=== PATIENT | female | born 1960 | race Caucasian/White ===

== ENCOUNTER 2016-08-16 15:58 | Emergency (ER) | payer OTHER ==
[2016-08-16 16:55] VITALS: BP 119/86; PULSE 111; RESP 20; TEMP 98.7; O2SAT 97; BMI 36.8
--- NOTE | 2016-08-16 17:18 | ED PDOC ---
Arrival/HPI - General Chief Complaint: GI Problem Time Seen by Provider: 08/16/16 16:49 Historian: Patient - History of Present Illness Narrative History of Present Illness (Text): 08/16/16 17:23 A 55 year old female, whose past medical history includes diabetes and hypertension, presents to the emergency department complaining of fever, generalized weakness, fatigue, myalgia and arthralgia for the past 2 days. Patient reports fever of 101. Patient denies any cough, shortness of breath, sore throat, abdominal pain, vomiting, diarrhea, genitourinary symptoms or other complaints at this time. Patient is a half pack a day smoker and an occasional drinker. Time/Duration: Other (2 days) Symptom Onset: Sudden Symptom Course: Unchanged Activities at Onset: Rest Modifying Factors (Text): none Context: Home Associated Symptoms (Text): 08/16/16 17:56 Two day history of generalized myalgias and arthralgias with a fever to 101 and generalized weakness and fatigue. No cough congestion or URI. No abdominal pain vomiting or diarrhea. No genitourinary symptoms. No chest pain palpitations or dyspnea. Patient reports she just doesn't feel well. She believes it may be related to some medication she was started on last week, but she is unsure what is new. Past Medical History - Provider Review Nursing Documentation Reviewed: Yes - Infectious Disease Hx of Infectious Diseases: None - Tetanus Immunization Tetanus Immunization: Up to Date - Cardiac Hx Hypertension: Yes - Pulmonary Hx Respiratory Disorders: No - Neurological Hx Neurological Disorder: Yes Hx Dizziness: Yes - HEENT Hx HEENT Disorder: No - Renal Hx Renal Disorder: No - Endocrine/Metabolic Hx Endocrine Disorders: Yes Hx Diabetes Mellitus Type 2: Yes - Hematological/Oncological Hx Blood Disorders: No - Integumentary Hx Dermatological Disorder: No - Musculoskeletal/Rheumatological Hx Musculoskeletal Disorders: No - Gastrointestinal Hx Gastrointestinal Disorders: No - Genitourinary/Gynecological Hx Genitourinary Disorders: No - Psychiatric Hx Psychophysiologic Disorder: Yes Hx Anxiety: Yes Hx Depression: No Hx Emotional Abuse: No Hx Physical Abuse: No Hx Substance Use: No - Past Surgical History Past Surgical History: No Previous - Surgical History Hx Appendectomy: Yes Hx Section: Yes (x2) - Anesthesia Hx Anesthesia: Yes Hx Anesthesia Reactions: No - Suicidal Assessment Feels Threatened In Home Enviroment: No Family/Social History - Physician Review Nursing Documentation Reviewed: Yes Family/Social History: No Known Family HX Smoking Status: Light Smoker < 10 Cigarettes Daily Hx Alcohol Use: No Hx Substance Use: No Hx Substance Use Treatment: No Allergies/Home Meds Allergies/Adverse Reactions: Allergies No Known Allergies Allergy (Verified 08/16/16 16:45) Home Medications: Home Meds Medication Instructions Recorded Confirmed Atorvastatin [Lipitor] 10 mg PO DAILY 04/25/14 08/16/16 Carvedilol [Coreg] 12.5 mg PO BID 04/25/14 08/16/16 Insulin Glargine,Hum.rec.anlog 0 unit SC HS 04/25/14 08/16/16 [Lantus] Metformin HCl [Metformin] 1,000 mg PO BID 04/25/14 08/16/16 SITagliptin [Januvia] 100 mg PO DAILY 04/25/14 08/16/16 Alprazolam [Xanax] 0.5 mg PO DAILY 08/16/16 08/16/16 Valsartan [Diovan] 320 mg PO DAILY 08/16/16 08/16/16 cloNIDine [Catapres] 0.2 mg PO BID 08/16/16 08/16/16 Review of Systems - Physician Review All systems were reviewed & negative as marked: Yes - Review of Systems Constitutional: Fatigue, Fevers, Other (generalized weakness) ENT: absent: Sore Throat Respiratory: absent: SOB, Cough Cardiovascular: absent: Chest Pain, Palpitations, Syncope Gastrointestinal: absent: Abdominal Pain, Diarrhea, Vomiting Genitourinary Female: absent: Dysuria, Frequency, Hematuria, Urine Output Changes Musculoskeletal: Arthralgias, Myalgias. absent: Back Pain, Neck Pain Neurological: absent: Headache, Dizziness, Focal Weakness Physical Exam Vital Signs Reviewed: Yes Vital Signs Temp Pulse Resp BP Pulse Ox 08/16/16 16:51 98.7 F 111 H 20 119/86 97 Temperature: Afebrile Blood Pressure: Normal Pulse: Tachycardic Respiratory Rate: Normal Appearance: Positive for: Well-Appearing, Non-Toxic, Other (obese). No: Comfortable Pain Distress: None Mental Status: Positive for: Alert and Oriented X 3 - Systems Exam Head: Present: Atraumatic, Normocephalic Pupils: Present: PERRL Extroacular Muscles: Present: EOMI Conjunctiva: Present: Normal Ears: Present: NORMAL TM, Normal Canal. No: Erythema, TM Bulging Mouth: Present: Moist Mucous Membranes Pharnyx: No: ERYTHEMA, EXUDATE, TONSILS ENLARGED Neck: Present: Normal Range of Motion Respiratory/Chest: Present: Clear to Auscultation, Good Air Exchange. No: Respiratory Distress, Accessory Muscle Use Cardiovascular: Present: Regular Rate and Rhythm, Tachycardic Abdomen: Present: Normal Bowel Sounds. No: Tenderness, Distention, Peritoneal Signs, Rebound, Guarding Back: Present: Normal Inspection Upper Extremity: Present: Normal Inspection. No: Cyanosis, Edema Lower Extremity: Present: Normal Inspection. No: Edema Neurological: Present: GCS=15, CN II-XII Intact, Speech Normal, Motor Func Grossly Intact Skin: Present: Warm, Dry, Normal Color. No: Rashes Psychiatric: Present: Alert, Oriented x 3, Normal Insight, Normal Concentration Medical Decision Making ED Course and Treatment: 08/16/16 17:12 Impression: A 55 year old female with fever, generalized weakness, myalgia and arthralgia. Plan: -- EKG -- chest xray -- Urinalysis -- labs -- Influenza A B -- Reassess and disposition Prior Visits: Notes and results from previous visits were reviewed. Patient last reported to the emergency department on 06/11/16 for evaluation of elevated blood glucose level and blood pressure. Patient was discharged. Progress Notes: 08/16/16 17:58 EKG shows normal sinus rhythm rate approximately 100 with a primary AV block and nonspecific ST changes with no acute changes 08/16/16 19:10 Urinary tract infection. Patient will be treated with one dose of IV Cipro and discharged home on Cipro and Pyridium to follow up with PMD. - Lab Interpretations Lab Results: 08/16/16 18:00 08/16/16 18:00 Lab Results 08/16/16 18:00: Sodium 136, Potassium 3.8, Chloride 93 L, Carbon Dioxide 33, Anion Gap 14, BUN 24 H, Creatinine 1.1, Est GFR ( Amer) > 60, Est GFR ( Non-Af Amer) 52, Random Glucose 204 H, Calcium 9.3, Total Bilirubin 1.0, AST 26 , ALT 32, Alkaline Phosphatase 75, Lactate Dehydrogenase 384, Total Creatine Kinase 69, Troponin I < 0.01, Total Protein 7.5, Albumin 3.9, Globulin 3.5, Albumin/Globulin Ratio 1.1 08/16/16 18:00: WBC 9.0, RBC 4.01, Hgb 12.2, Hct 35.5 L, MCV 88.5, MCH 30.4, MCHC 34.4, RDW 13.3, Plt Count 191, MPV 10.3, Gran % 63.7, Lymph % (Auto) 26.9, [place] % (Auto) 8.9 H, Eos % (Auto) 0.3 L, Baso % (Auto) 0.2, Gran # 5.70, Lymph # 2.4, [place] # 0.8 H, Eos # 0.0, Baso # 0.02 08/16/16 18:00: Influenza Typ A,B (EIA) Negative for flu a/b 08/16/16 17:35: Urine Color Yellow, Urine Appearance Cloudy, Urine pH 6.0, Ur Specific [place] >= 1.030, Urine Protein 100 H, Urine Glucose (UA) Negative, Urine Ketones Negative, Urine Blood Small H, Urine Nitrate Negative, Urine Bilirubin Negative, Urine Urobilinogen 0.2, Ur Leukocyte Esterase Small H, Urine RBC 10 - 15, Urine WBC Tntc, Ur Epithelial Cells Many, Urine Bacteria Mod , Urine Other Fiber I have reviewed the lab results: Yes - RAD Interpretation Radiology Orders: 08/16/16 17:09 CHEST PORTABLE [RAD] Stat - EKG Interpretation Interpreted by ED Physician: Yes Type: 12 lead EKG - Medication Orders Current Medication Orders: Ciprofloxacin (Cipro 200mg/100ml D5w) 100 mls @ 67 mls/hr IVPB STAT STA PRN Reason: Protocol Stop: 08/16/16 20:30 - Scribe Statement The provider has reviewed the documentation as recorded by the Jere Gomez Provider Scribe Attestation: All medical record entries made by the Scribe were at my direction and personally dictated by me. I have reviewed the chart and agree that the record accurately reflects my personal performance of the history, physical exam, medical decision making, and the department course for this patient. I have also personally directed, reviewed, and agree with the discharge instructions and disposition. Disposition/Present on Arrival - Present on Arrival Any Indicators Present on Arrival: No History of DVT/PE: No History of Uncontrolled Diabetes: Yes Urinary Catheter: No History of Decub. Ulcer: No History Surgical Site Infection Following: None - Disposition Have Diagnosis and Disposition been Completed?: Yes Diagnosis: Urinary tract infection Disposition: HOME/ ROUTINE Disposition Time: 19:10 Patient Plan: Discharge Condition: GOOD Discharge Instructions (ExitCare): Urinary Tract Infection in Women (ED) Prescriptions: Ciprofloxacin [Cipro] 500 mg PO BID #14 tab Phenazopyridine HCl [Pyridium] 200 mg PO Q8 #9 tablet Referrals: PCP,NO [Primary Care Provider] - Follow up with primary
[2016-08-16 18:12] LABS: ADD MANUAL DIFF? NO
[2016-08-16 18:13] LABS: URINE BILIRUBIN NEGATIVE (NEGATIVE); URINE BLOOD SMALL (NEGATIVE); URINE GLUCOSE (UA) NEGATIVE (NEGATIVE); URINE KETONE NEGATIVE (NEGATIVE); URINE LEUKOCYTE ESTERASE SMALL Leu/uL (NEGATIVE); URINE PROTEIN 100 mg/dL (<30 mg/dL); URINE UROBILINOGEN 0.2 E.U./dL (<1 E.U./dL)
[2016-08-16 18:29] LABS: URINE APPEARANCE CLOUDY (CLEAR); URINE COLOR YELLOW (YELLOW)
[2016-08-16 18:33] LABS: BASO # 0.02 K/mm3 (0.0-2.0); BASO % 0.2 % (0.0-3.0); EOS % 0.3 % (1.5-5.0); GRAN % 63.7 % (50.0-68.0); HEMATOCRIT 35.5 % (36.0-48.0); LYMPH # 2.4 (1.2-3.4); LYMPH % 26.9 % (22.0-35.0); MEAN CELL VOLUME 88.5 fL (80.0-105.0); MEAN CORPUSCULAR HEMOGLOBIN 30.4 pg (25.0-35.0); MEAN CORPUSCULAR HGB CONC 34.4 g/dl (31.0-37.0); MEAN PLATELET VOLUME 10.3 fl (7.0-11.0); MONO # 0.8 (0.1-0.6); MONO % 8.9 % (1.0-6.0); PLATELET COUNT 191 10^3/uL (120.0-450.0); RED CELL DISTRIBUTION WIDTH 13.3 % (11.5-14.5)
[2016-08-16 18:39] LABS: ALB/GLOB RATIO 1.1 (1.1-1.8); ALKALINE PHOSPHATASE 75 U/L (38-133); ALT/SGPT 32 U/L (7-56); AST/SGOT 26 U/L (15-39); BLOOD UREA NITROGEN 24 mg/dL (7-21); CALCIUM 9.3 mg/dL (8.4-10.5); CARBON DIOXIDE 33 mmol/L (21-33); CHLORIDE 93 mmol/L (98-107); GFR AFRICAN-AMERICAN > 60; GLUCOSE,RANDOM 204 mg/dL (70-110); POTASSIUM 3.8 mmol/L (3.6-5.0); SODIUM 136 mmol/L (132-148); TOTAL PROTEIN 7.5 g/dL (5.8-8.3)
[2016-08-16 18:54] LABS: TROPONIN I < 0.01 ng/mL
[2016-08-16 18:57] LABS: URINE BACTERIA MOD (NEG); URINE EPITHELIAL CELLS MANY /hpf (0-5); URINE WBC TNTC /hpf (0-6)
[2016-08-16] MEDS ORDERED: Ciprofloxacin 200mg/100ml D5W 100 ML IVPB STA (19:01)
--- NOTE | 2016-08-17 23:09 | CARD ---
APPROVED REPORT EKG Measurement Heart [id number] <Conclusion> Sinus tachycardia Left axis deviation Voltage criteria for left ventricular hypertrophy Nonspecific ST abnormality Abnormal ECG
== END 2016-08-16 20:13 | disposition home or self-care (01) ==
LOC: ED 15:58
DX: N39.0 Urinary tract infection, site not specified (principal); E11.9 Type 2 diabetes mellitus without complications; I10 Essential (primary) hypertension
CPT/HCPCS: 80053; 81001; 82550; 83615; 84484; 85025; 87804; 93005; 96365; 99284; J0744

== ENCOUNTER 2017-09-14 13:12 | Emergency (ER) | payer SELFPAY ==
[2017-09-14 14:02] VITALS: BMI 36.5
[2017-09-14 14:08] VITALS: RESP 18; TEMP 98; O2SAT 98
[2017-09-14] MEDS ORDERED: Sodium Chloride 0.9% 1,000 ML IV STA (14:19)
--- NOTE | 2017-09-14 14:21 | ED PDOC ---
Arrival/HPI - General Chief Complaint: High Blood Sugar Time Seen by Provider: 09/14/17 14:08 Historian: Patient - History of Present Illness Narrative History of Present Illness (Text): 09/14/17 14:21 56 year old female, post menopausal, with past medical history of hypertension, high cholesterol, insulin-dependent diabetes and chronic diarrhea /IBS currently seeing a GI, and NKDA, presents to the emergency department complaining of high blood sugar prior to arrival. Patient states her blood sugar was high [facility] 516 [facility] however , measurement in the emergency department showed a blood sugar level of 316 mg/ dL. Patient currently denies any somatic complaints, including abdominal pain, nausea, vomiting, diarrhea, fever, tremors, chest pain, shortness of breath , fatigue, and dizziness. Patient presents to the emergency department for medical evaluation. Time/Duration: Prior to Arrival Symptom Onset: Gradual Symptom Course: Improving Activities at Onset: Light Context: Home Past Medical History - Provider Review Nursing Documentation Reviewed: Yes - Infectious Disease Hx of Infectious Diseases: None - Tetanus Immunization Tetanus Immunization: Up to Date - Cardiac Hx Hypertension: Yes - Pulmonary Hx Respiratory Disorders: No - Neurological Hx Neurological Disorder: Yes Hx Dizziness: Yes - HEENT Hx HEENT Disorder: No - Renal Hx Renal Disorder: No - Endocrine/Metabolic Hx Endocrine Disorders: Yes Hx Diabetes Mellitus Type 1: Yes Hx Diabetes Mellitus Type 2: Yes - Hematological/Oncological Hx Blood Disorders: No - Integumentary Hx Dermatological Disorder: No - Musculoskeletal/Rheumatological Hx Musculoskeletal Disorders: No - Gastrointestinal Hx Gastrointestinal Disorders: No - Genitourinary/Gynecological Hx Genitourinary Disorders: No - Psychiatric Hx Psychophysiologic Disorder: Yes Hx Anxiety: Yes Hx Depression: No Hx Emotional Abuse: No Hx Physical Abuse: No Hx Substance Use: No - Past Surgical History Past Surgical History: No Previous - Surgical History Hx Appendectomy: Yes Hx Section: Yes (x2) - Anesthesia Hx Anesthesia: Yes Hx Anesthesia Reactions: No - Suicidal Assessment Feels Threatened In Home Enviroment: No Family/Social History - Physician Review Nursing Documentation Reviewed: Yes Family/Social History: No Known Family HX Smoking Status: Heavy Smoker > 10 Cigarettes Daily Hx Alcohol Use: No Hx Substance Use: No Hx Substance Use Treatment: No Allergies/Home Meds Allergies/Adverse Reactions: Allergies No Known Allergies Allergy (Verified 08/16/16 16:45) Home Medications: Home Meds Medication Instructions Recorded Confirmed Insulin Glargine,Hum.rec.anlog 40 unit SC HS 04/25/14 09/14/17 [Lantus] Metformin HCl [Metformin] 1,000 mg PO BID 04/25/14 09/14/17 Gabapentin [Neurontin] 1 cap PO TID 09/14/17 09/14/17 Insulin Glulisine [Apidra] 30 unit SC TID 09/14/17 09/14/17 Insulin Human Regular [Novolin R] 30 unit SC ACHS 09/14/17 09/14/17 Review of Systems - Physician Review All systems were reviewed & negative as marked: Yes - Review of Systems Constitutional: absent: Fevers Respiratory: absent: SOB, Cough, Sputum Cardiovascular: absent: Chest Pain Gastrointestinal: absent: Abdominal Pain, Diarrhea, Nausea, Vomiting Neurological: absent: Dizziness Psychiatric: absent: Anxiety, Depression Physical Exam Vital Signs Reviewed: Yes Vital Signs Temp Pulse Resp BP Pulse Ox 09/14/17 16:00 86 18 157/96 H 98 09/14/17 14:08 98.0 F 94 H 18 159/107 H 98 Temperature: Afebrile Blood Pressure: Hypertensive Pulse: Tachycardic Respiratory Rate: Normal Appearance: Positive for: Well-Appearing, Non-Toxic, Comfortable Pain Distress: None Mental Status: Positive for: Alert and Oriented X 3 Finger Stick Blood Glucose: 316 - Systems Exam Head: Present: Atraumatic, Normocephalic Pupils: Present: PERRL Extroacular Muscles: Present: EOMI Conjunctiva: Present: Normal Mouth: Present: Moist Mucous Membranes Neck: Present: Normal Range of Motion Respiratory/Chest: Present: Clear to Auscultation, Good Air Exchange. No: Respiratory Distress, Accessory Muscle Use Cardiovascular: Present: Regular Rate and Rhythm, Normal S1, S2. No: Murmurs Abdomen: No: Tenderness, Distention, Peritoneal Signs, Rebound, Guarding Back: Present: Normal Inspection Upper Extremity: Present: Normal Inspection. No: Cyanosis, Edema Lower Extremity: Present: Normal Inspection. No: Edema Neurological: Present: GCS=15, CN II-XII Intact, Speech Normal Skin: Present: Warm, Dry, Normal Color. No: Rashes Psychiatric: Present: Alert, Oriented x 3, Normal Insight, Normal Concentration Medical Decision Making ED Course and Treatment: 09/14/17 14:20 -labs -IVF -observe and reassess 09/14/17 16:17 -Labs are non-significant except BUN 26 (1500cc bolus ordered) with Mg 1.2 ( mgsu 2gm IV ordered). -Pt. has no abdominal pain with nausea/vomiting/diarrhear -Pt. is eating and drinking well, asymptomatic, advised outpatient follow up with the pmd within 2 days for follow up and medication adjustment for her DM or with pastry assistant. -Pt. is out of the blood pressure medications including valsartan/clonidine/ coreg and lipitor as per the medication list on the chart as per patient as well which it's correct and confirmed with the medication. -Discharge home with continue all your medications at home, antihypertensive medications, follow up with our own pmd and GI/pastry assistant within 2 days, return to the ER for any new or worsening signs or symptoms. - Lab Interpretations Lab Results: 09/14/17 15:30 09/14/17 15:30 Lab Results 09/14/17 15:30: WBC 10.0, RBC 4.14, Hgb 12.5, Hct 36.7, MCV 88.6, MCH 30.2, MCHC 34.1, RDW 13.4, Plt Count 226, MPV 10.3, Gran % 55.7, Lymph % (Auto) 36.6 H , [place] % (Auto) 5.3, Eos % (Auto) 2.0, Baso % (Auto) 0.4, Gran # 5.59, Lymph # ( Auto) 3.7 H, [place] # (Auto) 0.5, Eos # (Auto) 0.2, Baso # (Auto) 0.04 09/14/17 15:30: Sodium 144, Potassium 3.6, Chloride 104, Carbon Dioxide 24, Anion Gap 19, BUN 26 H, Creatinine 1.1, Est GFR ( Amer) > 60, Est GFR ( Non-Af Amer) 52, Random Glucose 297 H, Calcium 9.4, Magnesium 1.2 L, Total Bilirubin 0.4, AST 65 H, ALT 46, Alkaline Phosphatase 77, Total Protein 7.1, Albumin 4.1, Globulin 3.1, Albumin/Globulin Ratio 1.3 09/14/17 14:10: POC Glucose (mg/dL) 316 H I have reviewed the lab results: Yes - Medication Orders Current Medication Orders: Discontinued Medications Sodium Chloride (Sodium Chloride 0.9%) 1,000 mls @ 999 mls/hr IV .Q1H1M STA Stop: 09/14/17 15:19 - PA / CONTACT CENTER ANALYST / Resident Statement MD/DO has reviewed & agrees with the documentation as recorded. - Scribe Statement The provider has reviewed the documentation as recorded by the Scribe Jose Armando Zhou. All medical record entries made by the Scribe were at my direction and personally dictated by me. I have reviewed the chart and agree that the record accurately reflects my personal performance of the history, physical exam, medical decision making, and the department course for this patient. I have also personally directed, reviewed, and agree with the discharge instructions and disposition. Disposition/Present on Arrival - Present on Arrival Any Indicators Present on Arrival: No History of DVT/PE: No History of Uncontrolled Diabetes: Yes Urinary Catheter: No History of Decub. Ulcer: No History Surgical Site Infection Following: None - Disposition Have Diagnosis and Disposition been Completed?: Yes Diagnosis: Hyperglycemia due to type 2 diabetes mellitus, Hypomagnesemia, Medication refill, HTN (hypertension) Disposition: HOME/ ROUTINE Disposition Time: 14:41 Patient Plan: Discharge Patient Problems: Current Active Problems Problem Status Onset Hyperglycemia due to type 2 diabetes mellitus Acute Hypomagnesemia Acute Medication refill Acute HTN (hypertension) Acute Condition: IMPROVED Additional Instructions: -Discharge home with continue all your medications at home, antihypertensive medications, follow up with our own pmd and GI/pastry assistant within 2 days, return to the ER for any new or worsening signs or symptoms. Prescriptions: Atorvastatin [Lipitor] 10 mg PO DAILY #20 tab Carvedilol [Coreg] 12.5 mg PO BID #40 tab cloNIDine [Catapres] 0.2 mg PO BID #20 tab Valsartan [Diovan] 320 mg PO DAILY #20 tab Referrals: Jurgen Burger MD [Staff Provider] - Follow up with primary [facility],Maria Esther Acevedo MD [Medical Doctor] - Follow up with primary [facility] [place] [Outside] - Follow up with primary Forms: WORK NOTE
[2017-09-14 16:01] LABS: BASO # 0.04 K/mm3 (0.0-2.0); BASO % 0.4 % (0.0-3.0); EOS # 0.2 (0.0-0.7); GRAN # 5.59 (1.4-6.5); GRAN % 55.7 % (50.0-68.0); HEMOGLOBIN 12.5 g/dL (12.0-16.0); LYMPH # 3.7 (1.2-3.4); LYMPH % 36.6 % (22.0-35.0); MEAN CELL VOLUME 88.6 fl (80.0-105.0); MEAN CORPUSCULAR HEMOGLOBIN 30.2 pg (25.0-35.0); MEAN CORPUSCULAR HGB CONC 34.1 g/dl (31.0-37.0); MEAN PLATELET VOLUME 10.3 fl (7.0-11.0); MONO # 0.5 (0.1-0.6); MONO % 5.3 % (1.0-6.0); RBC 4.14 10^6/uL (3.5-6.1); RED CELL DISTRIBUTION WIDTH 13.4 % (11.5-14.5)
[2017-09-14 16:14] LABS: ALB/GLOB RATIO 1.3 (1.1-1.8); ALBUMIN 4.1 g/dL (3.0-4.8); ALT/SGPT 46 U/L (7-56); AST/SGOT 65 U/L (14-36); BLOOD UREA NITROGEN 26 mg/dL (7-21); CALCIUM 9.4 mg/dL (8.4-10.5); GFR AFRICAN-AMERICAN > 60; GFR NON-AFRICAN AMERICAN 52
[2017-09-14] MEDS: Sodium Chloride 0.9% 1,000 ML IV STA (16:54)
[2017-09-14] MEDS: Sodium Chloride 0.9% 500 ML IV STA (16:54)
[2017-09-14] MEDS: Magnesium Sulfate 2 gm/50 ml 2 GM/50 ML BAG IVPB ONE (16:56)
[2017-09-14 17:36] VITALS: BP 152/86; PULSE 79
== END 2017-09-14 18:11 | disposition home or self-care (01) ==
LOC: ED 13:12
DX: E11.65 Type 2 diabetes mellitus with hyperglycemia (principal); Z79.4 Long term (current) use of insulin; I10 Essential (primary) hypertension; E83.42 Hypomagnesemia; Z76.0 Encounter for issue of repeat prescription; F17.210 Nicotine dependence, cigarettes, uncomplicated
CPT/HCPCS: 80053; 82948; 83735; 85025; 99284; J7030; J7040